=== PATIENT | male | born 1990 | race Hispanic/Latino ===

== ENCOUNTER 2024-08-21 08:13 | Emergency (ER) | payer BC ==
[~2024-08-21] VITALS: Ht 170.2 cm; Wt 71.7 kg
--- NOTE | 2024-08-21 08:20 | ERN ---
General Chief Complaint: FOOT INJURY/PAIN Stated Complaint: FEET PAIN Time Seen by MD: 08:16 Source: patient History of Present Illness Initial Comments Patient is a 34-year-old male coming in to be evaluated for lower extremity pain. Patient states that he has been having foot discomfort and foot pain for several days. He states he does not know how he got his feet. His right foot great toe is swollen. Allergies: Coded Allergies: No Known Drug Allergies (Unverified Allergy, Unknown, 08/21/24) Home Meds Active Scripts Cephalexin Monohydrate (Keflex) 500 Mg Cap, 1 CAP PO TID for 10 Days, #30 CAP 0 Refills Prov:BESSY CARDENAS MD 08/21/24 Past Medical History Past Medical History: No Pertinent History Past Surgical History: Other Surgical History Other: SPLEENECTOMY ROS Dictation CONSTITUTIONAL: No chills, no fever, no weakness, no diaphoresis, no malaise. HEAD/FACE: No signs of trauma. EENT: No eye pain, no blurred vision, no tearing, no double vision, no ear pain, no ear discharge, no nose pain, no nasal congestion, no throat pain, no throat swelling, no mouth pain. RESPIRATORY: No cough, no orthopnea, no SOB, no stridor, no wheezing. CARDIOVASCULAR: No chest pain, no edema, no palpitations, no syncope. GASTROINTESTINAL/ABDOMINAL: No abdominal pain, no constipation, no diarrhea, no nausea, no vomiting. GENITOURINARY: No abnormal discharge, no dysuria, no frequent urination, no hematuria. No complaints of pain in the genitals. MUSCULOSKELETAL: No back pain, no gout, no joint pain, no joint swelling, no muscle pain, no muscle stiffness, no neck pain. INTEGUMENTARY: change in color, no change in hair/nails, no dryness, no lesion, no lumps, no rash. NEUROLOGICAL/PSYCH: No anxiety, not depressed, no emotional problem, no headache, no numbness, no pre-existing deficit, no history of seizures, no tremors, no weakness. HEMATOLOGIC/LYMPHATIC: Not anemic, no history of blood clots, no apparent bleeding, no bruising, glands not swollen. All Systems Negative, Except as Noted. Physical Exam Physical Exam Dictation VITAL SIGNS: Reviewed. GENERAL APPEARANCE: Alert, oriented x3, no acute distress, obese. HEAD AND FACE: Non-traumatic. EYES: PERRL, pink conjunctivas, eyelid no trauma, anterior chamber clear. EARS: Pinnas intact and no signs of trauma or erythema. Ear canals clear and no discharge. TMs no erythema. NOSE: No discharge, no bleeding. OROPHARYNX: Mouth normal, teeth no caries, tongue pink. Pharynx clear, no erythema. Tonsils no exudates, no abscesses noted. Mucous membrane moist. NECK: Supple, non-tender, no thyromegaly, no masses, no JVD, no bruits. BREAST: Deferred. CHEST: No tenderness, no crepitus, no paradoxical movement, no retractions. LUNGS: Clear, well-ventilated, symmetric, no rales, no wheezing, no rhonchi, no stridor, good breath sounds bilaterally. HEART: Regular rate, regular rhythm, no murmur, no gallops. VASCULAR: No peripheral edema. ABDOMEN: Soft, positive bowel sounds, nondistended, no guarding, nontender, no rebound, no masses no hepatomegaly, no splenomegaly, no Chen's sign, no hernias. RECTAL: Deferred. GENITAL: Deferred. NEUROLOGICAL: Normal speech, gross motor function intact, gross sensory function intact. MUSCULOSKELETAL: Neck nontender, full range of motion, back nontender, full range of motion. EXTREMITIES: Nontender, full range of motion. SKIN: Color pink, dry, no turgor, no rash, no lacerations, abrasions, contusions. LYMPHATICS: Deferred. Results Laboratory and Microbiology Lab and Micro Result Laboratory Tests Test 08/21/24 09:05 White Blood Count 8.7 K/uL (4.8-10.8) Red Blood Count 4.86 MIL/uL (4.50-6.20) Hemoglobin 16.3 g/dL (14.0-18.0) Hematocrit 46.2 % (42-54) Mean Corpuscular Volume 95.1 fL (79-99) Mean Corpuscular Hemoglobin 33.5 pg (27.0-33.0) H Mean Corpuscular Hemoglobin Concent 35.3 g/dL (32.0-36.0) Red Cell Distribution Width 13.9 % (11.0-15.5) Platelet Count 374 K/uL (130-400) Mean Platelet Volume 10.6 fL (7.5-10.5) H Immature Granulocyte % (Auto) 0.3 % (0-1) Neutrophils (%) (Auto) 50.3 % (40.0-77.0) Lymphocytes (%) (Auto) 32.3 % (21.0-51.0) Monocytes (%) (Auto) 12.4 % (3.0-13.0) Eosinophils (%) (Auto) 4.0 % (0.0-8.0) Basophils (%) (Auto) 0.7 % (0.0-5.0) Neutrophils # (Auto) 4.4 K/uL (1.8-7.7) Lymphocytes # (Auto) 2.8 K/uL (1.0-4.8) Monocytes # (Auto) 1.1 K/uL (0.1-1.0) H Eosinophils # (Auto) 0.35 K/uL (0.00-0.70) Basophils # (Auto) 0.06 K/uL (0.00-0.20) Absolute Immature Granulocyte (auto 0.03 K/uL (0-1) Nucleated Red Blood Cells 0.0 % (0.0-0.19) Erythrocyte Sedimentation Rate 0 MM/HR (0-15) Sodium Level 143 mmol/L (136-145) Potassium Level 4.0 mmol/L (3.5-5.1) Chloride Level 107 mmol/L (101-111) Carbon Dioxide Level 30 mmol/L (21-32) Blood Urea Nitrogen 19 mg/dL (7-18) H Creatinine 1.1 mg/dL (0.5-1.3) Glomerular Filtration Rate Calc 91 mL/min (>90) Random Glucose 79 mg/dL (70-105) Total Calcium 8.4 mg/dL (8.5-10.1) L Labs Reviewed?: Yes EKG/XRAY/US/CT/MRI X-RAY Comment IMAGING REPORT Signed PATIENT: MANOLO JOHNSON MR#: [id number] : 1990 SEX: M AGE: 34 LOCATION: [facility] ORDER 8 STATUS: REG REPORT#: [id number] SERVICE 6 REASON: toe infections ORDERING PHYSICIAN: BESSY CARDENAS MD PROCEDURE: FT 2VW RT - FOOT LIMITED 2VWS RT RIGHT FOOT RADIOGRAPHS - 2 VIEWS INDICATION: Right foot infections COMPARISON: None FINDINGS: AP, lateral views. No acute fracture or subluxation identified. No evidence for periosteal reaction, cortical erosive changes, or any abnormal subperiosteal bone resorption. Midfoot alignment is well maintained. No radiopaque foreign body noted. IMPRESSION: No evidence for osteomyelitis. DICTATED BY: JONATHON PIERRE MD DATE: 08/21/24855 ELECTRONICALLY SIGNED BY: JONATHON PIERRE MD DATE: 08/21/24857 MDM MDM: Differential diagnosis: Cellulitis of the feet, gout, Patient is a 34-year-old gentleman coming in to be evaluated for right foot discomfort. On physical exam there is a erythema in the right toe nails look unkept. Laboratory workup negative for acute findings. Patient will be discharged with a diagnosis of stated that it was of the lower extremity. Antibiotics will be provided. ED Course Orders Procedure Category Date Status Time Cbc With Differential LAB 08/21/24 Complete 08:17 Basic Metabolic Panel LAB 08/21/24 Complete 08:17 Erythrocyte LAB 08/21/24 Complete Sedimentation Rate 08:17 Foot Limited 2vws Rt RAD 08/21/24 Resulted 08:17 Vital Signs Date Time Temp Pulse Resp B/P (MAP) Pulse Ox O2 Delivery O2 Flow Rate FiO2 08/21/24 08:14 98.2 65 16 138/95 97 Room Air DX & DISP Disposition: Discharge Departure Impression: Primary Impression: Cellulitis of both feet Condition: Stable Scripts Cephalexin Monohydrate (Keflex) 500 Mg Cap 1 CAP PO TID for 10 Days, #30 CAP 0 Refills Prov: BESSY CARDENAS MD 08/21/24 Referrals: SELF,REFERRAL (PCP) LISA CASTILLO MD Time of Disposition: 10:32 BESSY CARDENAS MD Aug 21, 2024 08:20
--- NOTE | 2024-08-21 08:20 | NUR ---
PT JUST NOW PLACED IN MY ED BED 11
--- NOTE | 2024-08-21 08:58 | HMCIMG ---
RIGHT FOOT RADIOGRAPHS - 2 VIEWS INDICATION: Right foot infections COMPARISON: None FINDINGS: AP, lateral views. No acute fracture or subluxation identified. No evidence for periosteal reaction, cortical erosive changes, or any abnormal subperiosteal bone resorption. Midfoot alignment is well maintained. No radiopaque foreign body noted. IMPRESSION: No evidence for osteomyelitis.
--- NOTE | 2024-08-21 09:06 | NUR ---
FOOT SOAKS: BOTH FEET PLACED IN CONTAINER W/SALINE AND BETADINE TO SOAK FOR A WHILE. BOTH FEET AND TOES ARE FOUL SMELLING AND HAVE DRAINAGE.
[2024-08-21 09:26] LABS: BASOPHILS # (AUTO) 0.06 K/uL (0.00-0.20); BASOPHILS % (AUTO) 0.7 % (0.0-5.0); EOSINOPHILS # (AUTO) 0.35 K/uL (0.00-0.70); HEMATOCRIT 46.2 % (42-54); IMMATURE GRANULOCYTE ABSOLUTE 0.03 K/uL (0-1); LYMPHOCYTES # (AUTO) 2.8 K/uL (1.0-4.8); LYMPHOCYTES % (AUTO) 32.3 % (21.0-51.0); MEAN CORPUSCULAR HEMOGLOBIN 33.5 pg (27.0-33.0); MEAN CORPUSCULAR HGB CONC 35.3 g/dL (32.0-36.0); MEAN CORPUSCULAR VOLUME 95.1 fL (79-99); MONOCYTES # (AUTO) 1.1 K/uL (0.1-1.0); MONOCYTES % (AUTO) 12.4 % (3.0-13.0); NEUTROPHILS # (AUTO) 4.4 K/uL (1.8-7.7); NEUTROPHILS % (AUTO) 50.3 % (40.0-77.0); PLATELET COUNT (AUTO) 374 K/uL (130-400); RED BLOOD CELL COUNT(AUTO) 4.86 MIL/uL (4.50-6.20); RED CELL DISTRIBUTION WIDTH 13.9 % (11.0-15.5); WHITE BLOOD COUNT (AUTO) 8.7 K/uL (4.8-10.8)
[2024-08-21 09:29] LABS: CREATININE 1.1 mg/dL (0.5-1.3)
[2024-08-21] MEDS ORDERED: CEPH500B PO (09:54)
[2024-08-21 10:30] LABS: ERYTHROCYTE SEDIMENTATION RATE 0 MM/HR (0-15)
[2024-08-21 11:05] VITALS: BP 144/98; PULSE 91; RESP 16; TEMP 97.9; O2SAT 100
== END 2024-08-21 11:15 | disposition home or self-care (01) ==
LOC: EDH 08:13
DX: L03.115 Cellulitis of right lower limb (principal); L03.116 Cellulitis of left lower limb
CPT/HCPCS: 36415; 73620; 80048; 85025; 85651; 99283